=== PATIENT | male | born 1985 | race Caucasian/White ===

== ENCOUNTER 2017-07-25 21:04 | Emergency (ER) | payer OTHER ==
[2017-07-25 21:19] VITALS: BP 130/85; PULSE 84; RESP 16; TEMP 97.8
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
--- NOTE | 2017-07-25 21:35 | XR ---
EXAMINATION TYPE: XR hand complete LT DATE OF EXAM: 07/25/2017 COMPARISON: NONE HISTORY: Laceration TECHNIQUE: 3 views FINDINGS: I see no fracture nor dislocation. Metacarpals are intact. Joint spaces are normal. There i s no sign of a foreign body. IMPRESSION: Normal left hand.
== END 2017-07-25 22:02 | disposition home or self-care (01) ==
LOC: EC 21:04
DX: S61.412A Laceration without foreign body of left hand, initial encounter (principal); F90.9 Attention-deficit hyperactivity disorder, unspecified type; F17.200 Nicotine dependence, unspecified, uncomplicated; Z79.899 Other long term (current) drug therapy; W45.8XXA Other foreign body or object entering through skin, initial encounter
CPT/HCPCS: 12002; 99283

== ENCOUNTER 2019-03-20 16:14 | Emergency (ER) | payer OTHER ==
[2019-03-20] MEDS ORDERED: KETOROLAC 60 MG/2 ML VIAL IM STA (17:08)
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
--- NOTE | 2019-03-20 17:43 | XR ---
EXAMINATION TYPE: XR chest 2V DATE OF EXAM: 03/20/2019 COMPARISON: NONE HISTORY: Right-sided chest pain TECHNIQUE: Frontal and lateral views of the chest are obtained. FINDINGS: Heart and mediastinum are normal. Lungs are clear. Diaphragm is normal. Bony thorax appear s normal. IMPRESSION: Normal chest
[2019-03-20 18:54] VITALS: BP 130/77; PULSE 86; RESP 16; TEMP 98.1
== END 2019-03-20 18:53 | disposition home or self-care (01) ==
LOC: EC 16:14
DX: S29.011A Strain of muscle and tendon of front wall of thorax, initial encounter (principal); F90.9 Attention-deficit hyperactivity disorder, unspecified type; F17.200 Nicotine dependence, unspecified, uncomplicated; Z79.899 Other long term (current) drug therapy; X50.1XXA Overexertion from prolonged static or awkward postures, initial encounter
CPT/HCPCS: 71046; 99283; 96372; J1885